=== PATIENT | male | born 1980 | race Two or more races ===

== ENCOUNTER 2020-09-10 18:03 | Emergency (ER) | payer OTHER ==
[~2020-09-10] VITALS: Ht 162.6 cm; Wt 69.6 kg
[2020-09-10] MEDS ORDERED: METHOCARBAMOL 750 MG TABLET ONE (20:58)
[2020-09-10] MEDS ORDERED: ACETAMINOPHEN 500 MG TABLET ONE (20:58)
[2020-09-10] MEDS ORDERED: METHOCARBAMOL 750 MG TABLET PO ONE (21:00)
[2020-09-10] MEDS ORDERED: ACETAMINOPHEN 500 MG TABLET PO ONE (21:00)
[2020-09-10 21:01] VITALS: BP 113/78
--- NOTE | 2020-09-10 21:01 | NUR ---
MEDS ADMIN PER JUL.
== END 2020-09-10 22:26 | disposition home or self-care (01) ==
LOC: ED 18:33
DX: S46.911A Strain of unspecified muscle, fascia and tendon at shoulder and upper arm level, right arm, initial encounter (principal); F17.210 Nicotine dependence, cigarettes, uncomplicated; X50.1XXA Overexertion from prolonged static or awkward postures, initial encounter; Y93.89 Activity, other specified; Y92.69 Other specified industrial and construction area as the place of occurrence of the external cause; Y99.8 Other external cause status
CPT/HCPCS: 99406